=== PATIENT | male | born 1955 | race Caucasian/White ===

== ENCOUNTER 2020-12-09 15:41 | Emergency (ER) | payer OTHER, MEDICARE ==
[~2020-12-09] VITALS: Ht 172.7 cm; Wt 127.0 kg
[~2020-12-09 15:41] MED LIST: ASPIR 8181 MG PO; COZAAR 50 MG TA50 M2 PO; CRESTOR20 MG PO; FISH OIL 1,001000 M2 PO; GLUCOTROL5 MG PO; INVOKANA100 MG PO; KEFLEX500 MG PO; METFORMIN HCL500 MG PO; MEVACOR40 MG PO; NIFEDIPINE20 MG PO; VICTOZA0.6 MG/0.1 SUBQ; VITAMIN B-12500 MCG PO
[2020-12-09 18:06] LABS: ABSOLUTE NEUTROPHILS 4.7 thou/uL (1.4-8.2); BASOPHILS 0.5 % (0.0-2.0); EOSINOPHILS 0.2 % (0.0-3.0); HEMATOCRIT 34.5 % (42.0-52.0); HEMOGLOBIN 11.4 gm/dL (14.0-18.0); LYMPHOCYTES 10.3 % (24.0-44.0); MCH 30.3 pg (26.0-34.0); MCHC 33.2 g/dL (28.0-37.0); MCV 91.4 fL (80.0-100.0); MONOCYTES 18.5 % (1.0-8.0); PLATELET COUNT 264 thou/uL (150-400); POLYS 70.5 % (36.0-66.0); RBC 3.77 mil/uL (4.50-6.00); RDW 13.6 % (10.5-14.5); WBC 6.7 thou/uL (4.0-11.0)
[2020-12-09 18:17] LABS: CALCIUM 9.1 mg/dL (8.5-10.1); POTASSIUM 3.4 mmol/L (3.5-5.1)
[2020-12-09 18:23] LABS: ALBUMIN 2.6 g/dL (3.4-5.0); TOTAL BILIRUBIN 0.6 mg/dL (0.2-1.0); TOTAL PROTEIN 7.2 g/dL (6.4-8.2)
[2020-12-09 19:18] LABS: URINE BILIRUBIN NEGATIVE (Negative); URINE BLOOD 3+ (Negative); URINE CLARITY SL CLOUDY; URINE COLOR YELLOW; URINE GLUCOSE-RANDOM* 3+ (Negative); URINE KETONES 1+ (Negative); URINE LEUKOCYTES-REFLEX TRACE (Negative); URINE PROTEIN (DIPSTICK) 1+ (Negative); URINE SPECIFIC GRAVITY 1.015 (1.005-1.035); URINE UROBILINOGEN 0.2 E.U./dl (0.2-1.0)
[2020-12-09 19:20] LABS: URINE NITRITE-REFLEX POSITIVE (Negative)
[2020-12-09] MEDS ORDERED: CEPHALEXIN500 MG PO (19:30)
[2020-12-09 19:33] LABS: MUCUS 0-3 Light strn/LPF (None Seen); SQUAMOUS 0-3 Few /LPF (0-3)
[2020-12-09 19:34] LABS: AMORPHOUS URATES Few /LPF (None Seen); BACTERIA-REFLEX >30 Many /HPF (None Seen); URINE RBC 3-10 Few /HPF (NONE SEEN); URINE WBC-REFLEX >25 Many /HPF (0-5)
[2020-12-09] MEDS ORDERED: COZAAR 25 MG TA25 M2 PO (20:05)
[2020-12-09] MEDS ORDERED: OZEMPIC1 MG/0.71 SUBQ (20:06)
[2020-12-09 20:13] VITALS: BP 137/67
== END 2020-12-09 20:16 | disposition home or self-care (01) ==
LOC: ER 15:41
PROVIDERS: Physician Assistant
DX: N39.0 Urinary tract infection, site not specified (principal); Z20.822 Contact with and (suspected) exposure to COVID-19; R50.9 Fever, unspecified; E11.9 Type 2 diabetes mellitus without complications; I10 Essential (primary) hypertension; E78.00 Pure hypercholesterolemia, unspecified; Z98.890 Other specified postprocedural states; Z79.891 Long term (current) use of opiate analgesic; Z79.84 Long term (current) use of oral hypoglycemic drugs; Z79.82 Long term (current) use of aspirin; Z79.1 Long term (current) use of non-steroidal anti-inflammatories (NSAID); Z79.899 Other long term (current) drug therapy; Z88.5 Allergy status to narcotic agent; Z91.018 Allergy to other foods; Z91.09 Other allergy status, other than to drugs and biological substances